=== PATIENT | female | born 1995 | race Caucasian/White ===

== ENCOUNTER → 2016-09-27 | Outpatient (REF) | payer OTHER ==
[2016-09-27 20:08] LABS: AMYLASE 73 U/L (25-115)
[2016-09-28 08:10] LABS: CONTROL LINE HPYORI INT CTR LINE PRESENT
== END ==
LOC: M LAB REF 16:53
PROVIDERS: ATTEND Nurse Practitioner Adult Health
DX: R10.9 Unspecified abdominal pain (principal)

== ENCOUNTER → 2017-07-06 | Outpatient (REF) | payer OTHER ==
[2017-07-06 15:51] LABS: GLUCOSE,RANDOM 91 MG/DL (LESS THAN 200)
[2017-07-17 08:07] LABS: ZNT8 ABS <15 U/mL (.)
== END ==
LOC: M LABDRAW1 14:50
DX: E11.9 Type 2 diabetes mellitus without complications (principal)
CPT/HCPCS: 82947

== ENCOUNTER 2019-09-12 17:20 | Emergency (ER) | payer OTHER ==
[~2019-09-12] VITALS: Ht 165.1 cm; Wt 91.7 kg
[2019-09-12] MEDS ORDERED: FARX1TAB3 (17:26)
[2019-09-12] MEDS ORDERED: JUNETAB2 (17:26)
[2019-09-12] MEDS ORDERED: IBUP-1114 PO (17:26)
[2019-09-12] MEDS ORDERED: MIRA3350 PO (17:28)
[2019-09-12 17:52] LABS: BASO % 0.3 % (0.0-1.0); EOS # 0.1 10^3/uL (0.0-0.5); EOS % 1.1 % (0.0-3.0); HEMATOCRIT 40.5 % (36.0-47.0); HEMOGLOBIN 14.2 g/dl (12.0-15.5); LYMPH # 2.4 10^3/uL (1.5-5.0); LYMPH % 36.2 % (24.0-44.0); MEAN CORPUSCULAR HEMOGLOBIN 29.7 pg (27.0-33.0); MEAN CORPUSCULAR HGB CONC 35.1 g/dl (32.0-36.5); MEAN CORPUSCULAR VOLUME 84.7 fl (80.0-96.0); MONO # 0.5 10^3/uL (0.0-0.8); MONO % 7.1 % (0.0-5.0); NEUTROPHILS # 3.6 10^3/uL (1.5-8.5); NEUTROPHILS % 54.8 % (36.0-66.0); PLATELET COUNT, AUTOMATED 248 10^3/uL (150-450); RED BLOOD COUNT 4.78 10^6/uL (4.00-5.40); WHITE BLOOD COUNT 6.6 10^3/uL (4.0-10.0)
[2019-09-12] MEDS ORDERED: ONDANSETRON 4MG/2ML VIAL (J2405) IV ONE (18:15)
[2019-09-12] MEDS ORDERED: NS 1,000 ML IV ONE (18:15)
[2019-09-12] MEDS ORDERED: KETOROLAC 30 MG/ML VIAL (J1885) IV ONE (18:15)
[2019-09-12 18:18] LABS: ALBUMIN 3.9 GM/DL (3.2-5.2); BILIRUBIN,DIRECT 0.1 MG/DL (0.0-0.2); BILIRUBIN,TOTAL 0.4 MG/DL (0.2-1.0); TOTAL PROTEIN 7.5 GM/DL (6.4-8.2)
[2019-09-12] MEDS ORDERED: ISOVUE-370 76% 100ML VIAL (Q9967) As Ordered ONE (18:20)
--- NOTE | 2019-09-12 19:58 | REPVR ---
PROCEDURE INFORMATION: Exam: CT Abdomen And Pelvis With Contrast Exam date and time: 09/12/2019 7:10 PM Age: 23 years old Clinical indication: Abdominal pain; Additional info: Periumbilical pain, nausea TECHNIQUE: Imaging protocol: Computed tomography of the abdomen and pelvis with intravenous contrast. Radiation optimization: All CT scans at this facility use at least one of these dose optimization techniques: automated exposure control; mA and/or kV adjustment per patient size (includes targeted exams where dose is matched to clinical indication); or iterative reconstruction. Contrast material: ISOVUE 370; Contrast volume: 100 ml; Contrast route: IV; COMPARISON: No relevant prior studies available. FINDINGS: Liver: There is a diffuse decrease in hepatic parenchymal density, consistent with steatosis. Gallbladder and bile ducts: Normal. No calcified stones. No ductal dilation. Pancreas: Normal. No ductal dilation. Spleen: Top normal splenic size. Spleen otherwise unremarkable. Adrenals: Normal. No mass. Kidneys and ureters: Normal. No hydronephrosis. Stomach and bowel: There is increased feces throughout the colon consistent with constipation. Mild thickening of the wall of multiple small bowel loops demonstrating stasis proximally. Findings may indicate an ileus in association with small bowel enteritis. Appendix: The appendix is within normal limits. There is no appendiceal enlargement, periappendiceal inflammatory changes or abscess. Intraperitoneal space: Unremarkable. No free air. No significant fluid collection. Vasculature: Unremarkable. No abdominal aortic aneurysm. Lymph nodes: Unremarkable. No enlarged lymph nodes. Bladder: Unremarkable as visualized. Reproductive: Unremarkable as visualized. Bones/joints: Mild central spinal stenosis L3-L4 and [id number] asymmetric spinal stenosis on the right at L4-L5 with an osteophyte narrowing the lateral recess likely impinging on the ipsilateral traversing L5 nerve root. Correlation with a lumbar MRI suggested. Soft tissues: Unremarkable. IMPRESSION: 1. There is a diffuse decrease in hepatic parenchymal density, consistent with steatosis. 2. The appendix is within normal limits. There is no appendiceal enlargement, periappendiceal inflammatory changes or abscess. 3. There is increased feces throughout the colon consistent with constipation. 4. Mild thickening of the wall of multiple small bowel loops demonstrating stasis proximally. Findings may indicate an ileus in association with small bowel enteritis. Electronically signed by: Jose Alejandro Thompsno On 09/12/2019 19:58:06 PM
[2019-09-12 21:07] VITALS: BP 129/67
== END 2019-09-12 21:47 | disposition home or self-care (01) ==
LOC: M ED 17:20
DX: K59.00 Constipation, unspecified (principal); E11.9 Type 2 diabetes mellitus without complications; Z88.2 Allergy status to sulfonamides; Z79.899 Other long term (current) drug therapy
CPT/HCPCS: 74177; 80047; 80076; 81001; 83690; 84702; 85025; 96361; 96374; 96375; 99284; J1885; J2405; Q9967

== ENCOUNTER 2020-02-20 20:21 | Emergency (ER) | payer OTHER ==
[~2020-02-20] VITALS: Ht 165.1 cm; Wt 88.0 kg
[~2020-02-20 20:21] MED LIST: FARX1TAB3; IBUP-1114 PO; JUNETAB2; MIRA3350 PO
[2020-02-20 21:39] LABS: BASO % 0.3 % (0.0-1.0); EOS % 0.2 % (0.0-3.0); HEMATOCRIT 38.1 % (36.0-47.0); HEMOGLOBIN 13.2 g/dl (12.0-15.5); LYMPH # 1.4 10^3/uL (1.5-5.0); LYMPH % 11.4 % (24.0-44.0); MEAN CORPUSCULAR HEMOGLOBIN 29.5 pg (27.0-33.0); MEAN CORPUSCULAR HGB CONC 34.6 g/dl (32.0-36.5); MONO # 0.5 10^3/uL (0.0-0.8); MONO % 4.3 % (0.0-5.0); NEUTROPHILS % 83.3 % (36.0-66.0); PLATELET COUNT, AUTOMATED 242 10^3/uL (150-450); RED BLOOD COUNT 4.48 10^6/uL (4.00-5.40)
[2020-02-20 22:11] LABS: BLOOD UREA NITROGEN 18 MG/DL (7-18); CALCIUM LEVEL 8.9 MG/DL (8.5-10.1); CARBON DIOXIDE LEVEL 26 MEQ/L (21-32); CHLORIDE LEVEL 105 MEQ/L (98-107); CREATININE FOR GFR 0.91 MG/DL (0.55-1.30); GLOMERULAR FILTRATION RATE > 60.0 (>60); GLUCOSE, FASTING 177 MG/DL (70-100); POTASSIUM SERUM 4.1 MEQ/L (3.5-5.1); SODIUM LEVEL 135 MEQ/L (136-145)
[2020-02-20 22:18] LABS: HCG, SERUM QUALITATIVE POSITIVE (NEGATIVE)
[2020-02-20 23:07] LABS: BILIRUBIN, URINE MANUAL NEGATIVE (NEGATIVE); GLUCOSE, URINE (UA) MANUAL NEGATIVE (NEGATIVE); KETONE, URINE MANUAL 2+ mg/dL (NEGATIVE); UROBILINOGEN, URINE MANUAL NORMAL (NORMAL)
[2020-02-20 23:23] LABS: RBC, URINE TNTC /hpf (0-3)
[2020-02-20 23:25] LABS: BACTERIA, URINE SMALL AMOUNT; HYALINE CAST, URINE NONE SEEN /lpf (0-1); MUCUS, URINE SMALL AMOUNT (NEGATIVE); SQUAMOUS EPITHELIAL CELL URINE SMALL AMOUNT /hpf (SMALL AMT)
[2020-02-21] LABS: HCG, SERUM QUANTITATIVE 8431 MIU/ML
[2020-02-21 00:18] VITALS: BP 120/66
--- NOTE | 2020-02-21 00:38 | REPVR ---
PROCEDURE INFORMATION: Exam: US First Trimester, Transabdominal and US , Transvaginal Exam date and time: 02/20/2020 11:18 PM Age: 24 years old Clinical indication: Lmp or gestational age (in weeks): Unk; Antepartum complications; Bleeding; TECHNIQUE: Imaging protocol: Real-time transabdominal obstetrical ultrasound of the maternal pelvis and a first trimester , less than 14 weeks 0 days, with image documentation. Transvaginal imaging was used for better evaluation of the fetus and adnexa. COMPARISON: CT ABD/PEL W/IV CONTRAST ONLY 09/12/2019 7:06 PM FINDINGS: Gestation: No intrauterine gestation is visualized. MATERNAL: Uterus: Uterus measures 9.0 x 4.5 x 5.2 centimetres. Endometrium measures 11 mm. Cervix: Unremarkable. Right adnexa: Right ovary measures 3.9 x 1.9 x 2.9 centimetres. Right ovary appears within normal limits. Left adnexa: Left ovary measures 3.1 x 2.2 x 1.3 centimetres. Left ovary appears within normal limits. Intraperitoneal space: No intraperitoneal free fluid. IMPRESSION: No intrauterine gestation is visualized. Electronically signed by: Cali Thakkar On 02/21/2020 00:38:44 AM
[2020-02-27] MEDS ORDERED: AMOX500C PO (09:32)
== END 2020-02-21 00:58 | disposition home or self-care (01) ==
LOC: M ED 20:21
DX: O20.0 Threatened abortion (principal); O24.111 Pre-existing type 2 diabetes mellitus, in pregnancy, first trimester; Z88.2 Allergy status to sulfonamides; Z3A.00 Weeks of gestation of pregnancy not specified

== ENCOUNTER → 2020-02-22 | Outpatient (CLI) | payer OTHER ==
[~2020-02-22] MED LIST changes: +AMOX500C PO
== END ==
LOC: M LAB 13:24
PROVIDERS: ATTEND Physician Assistant
DX: O20.0 Threatened abortion (principal); Z3A.00 Weeks of gestation of pregnancy not specified

== ENCOUNTER → 2020-04-03 | Outpatient (REF) | payer OTHER ==
[2020-04-03 16:40] LABS: HCG, SERUM QUALITATIVE NEGATIVE (NEGATIVE)
[2020-04-03 16:47] LABS: HCG, SERUM QUANTITATIVE < 1.0 MIU/ML
== END ==
LOC: M LAB REF 16:19
PROVIDERS: ATTEND Registered Nurse
DX: O03.9 Complete or unspecified spontaneous abortion without complication (principal)

== ENCOUNTER → 2020-12-19 | Outpatient (CLI) | payer OTHER ==
--- NOTE | 2020-12-21 07:26 | REP ---
INDICATION: CONTUSION COMPARISON: None. TECHNIQUE: AP, lateral, bilateral oblique views right hand. FINDINGS: The osseous structures and joint spaces are intact and normal. There is no evidence for acute fracture or dislocation. Surrounding soft tissues are unremarkable. No subcutaneous emphysema or radiodense foreign body. IMPRESSION: Normal radiographic evaluation. No acute fracture or dislocation. <Electronically signed by Bryan Clinton > 12/21/20 [id number]
--- NOTE | 2020-12-21 07:26 | REP ---
INDICATION: CONTUSION COMPARISON: None. TECHNIQUE: AP, lateral, bilateral oblique views right wrist. FINDINGS: The carpal bones, surrounding osseous structures, soft tissues, and joint spaces are normal. There is no evidence for acute fracture or dislocation. No subcutaneous emphysema or radiodense foreign body. IMPRESSION: Normal wrist series. No acute fracture or dislocation. <Electronically signed by Bryan Clinton > 12/21/20 [id number]
== END ==
LOC: M WUC 10:27
PROVIDERS: ATTEND Physician Assistant
DX: S60.211A Contusion of right wrist, initial encounter (principal); S60.221A Contusion of right hand, initial encounter; X58.XXXA Exposure to other specified factors, initial encounter; Y92.9 Unspecified place or not applicable

== ENCOUNTER → 2021-05-13 | Outpatient (REF) | payer OTHER ==
[2021-05-13 18:00] LABS: APPEARANCE, URINE HAZY (CLEAR); BACTERIA, URINE AUTO NEGATIVE (NEGATIVE); BILIRUBIN, URINE AUTO NEGATIVE (NEGATIVE); BLOOD, URINE BLOOD NEGATIVE (NEGATIVE); COLOR, URINE YELLOW (YELLOW); GLUCOSE, URINE (UA) AUTO 3+ mg/dL (NEGATIVE); KETONE, URINE AUTO NEGATIVE (NEGATIVE); LEUKOCYTE ESTERASE, URINE AUTO NEGATIVE (NEGATIVE); MUCUS, URINE LARGE (NEGATIVE); NITRITE, URINE AUTO NEGATIVE (NEGATIVE); PROTEIN, URINE AUTO NEGATIVE (NEGATIVE); RBC, URINE AUTO 0 /HPF (0-3); SPECIFIC GRAVITY URINE AUTO 1.021 (1.002-1.035); SQUAMOUS EPITHELIAL CELL UR AU 7 /HPF (0-6); UROBILINOGEN, URINE AUTO 0.2 mg/dL (0.0-2.0); WBC, URINE AUTO 2 /HPF (0-3)
[2021-05-13 22:04] LABS: HCG, SERUM QUALITATIVE NEGATIVE (NEGATIVE)
[2021-05-13 22:11] LABS: HCG, SERUM QUANTITATIVE < 1.0 MIU/ML
== END ==
LOC: M LAB REF 16:26
PROVIDERS: ATTEND Physician Assistant
DX: R30.0 Dysuria (principal); N91.2 Amenorrhea, unspecified

== ENCOUNTER → 2021-09-23 | Outpatient (REF) | payer OTHER ==
[2021-09-23 12:56] LABS: HEMOGLOBIN 14.7 g/dl (12.0-15.5); MEAN CORPUSCULAR HEMOGLOBIN 28.8 pg (27.0-33.0); MEAN CORPUSCULAR HGB CONC 34.2 g/dl (32.0-36.5); MEAN CORPUSCULAR VOLUME 84.3 fl (80.0-96.0); PLATELET COUNT, AUTOMATED 253 10^3/uL (150-450); WHITE BLOOD COUNT 6.5 10^3/uL (4.0-10.0)
[2021-09-23 14:20] LABS: HCG, SERUM QUANTITATIVE 2452 MIU/ML; HEPATITIS B SURFACE ANTIGEN NEGATIVE (NEGATIVE); HEPATITIS C VIRUS ABY INDEX 0.2 INDEX (<0.8); HIV 1&2 SCREEN CENTAUR NEGATIVE (NEGATIVE)
[2021-09-23 14:44] LABS: HEMOGLOBIN A1c 6.1 %
== END ==
LOC: M LAB REF 12:18
PROVIDERS: ATTEND Obstetrics & Gynecology
DX: O36.80X0 Pregnancy with inconclusive fetal viability, not applicable or unspecified (principal); Z32.01 Encounter for pregnancy test, result positive; O24.319 Unspecified pre-existing diabetes mellitus in pregnancy, unspecified trimester; Z3A.00 Weeks of gestation of pregnancy not specified

== ENCOUNTER 2022-01-26 12:37 | Outpatient (CLI) | payer OTHER ==
[~2022-01-26] VITALS: Ht 167.6 cm; Wt 96.6 kg
[2022-01-26 12:55] VITALS: BP 131/84
[2022-01-26] MEDS ORDERED: FLINCHW PO (13:02)
[2022-01-26] MEDS ORDERED: NOVOINJ13 SC ×2 (13:02)
[2022-01-26] MEDS ORDERED: HUMA100I3 SC (13:02)
[2022-01-26] MEDS ORDERED: HOME MED LIST COMPLETE! XX SCH (13:05)
== END 2022-01-26 13:35 | disposition home or self-care (01) ==
LOC: M LDO 12:37
PROVIDERS: ATTEND Obstetrics & Gynecology
DX: O36.8120 Decreased fetal movements, second trimester, not applicable or unspecified (principal); Z3A.22 22 weeks gestation of pregnancy